=== PATIENT | female | born 1945 | race Asian ===

== ENCOUNTER 2018-01-06 14:00 | Outpatient (RCR) | payer OTHER | END 2018-01-26 | disposition home or self-care (01) | LOC: PTY 14:00 | PROVIDERS: ATTEND Internal Medicine | DX: M54.2 Cervicalgia (principal) ==

== ENCOUNTER 2018-02-03 15:00 | Outpatient (RCR) | payer OTHER | END 2018-02-26 | disposition home or self-care (01) | LOC: PTY 15:00 | PROVIDERS: ATTEND Internal Medicine | DX: M54.2 Cervicalgia (principal) ==

== ENCOUNTER 2018-03-03 13:00 | Outpatient (RCR) | payer OTHER | END 2018-03-28 | disposition home or self-care (01) | LOC: PTY 13:00 | PROVIDERS: ATTEND Internal Medicine | DX: M54.2 Cervicalgia (principal) ==